=== PATIENT | female | born 1960 | race Caucasian/White ===

== ENCOUNTER 2017-05-22 07:58 | Emergency (ER) | payer BC ==
[2017-05-22 08:04] VITALS: BP 126/79
--- NOTE | 2017-05-22 09:25 | UC ---
Ear Complaint HPI - HPI Summary HPI Summary: 56 /o female presents to the urgent care c/o B/L ear pain and a feeling her tongue is burned since last Monday. She also states has has 3 episodes of diarrhea since Monday night 05/20/2017. Today she hasn't had any episodes of diarrhea, but she has a mild SEAMAN, pain 4/10. Pt denies fever, SOB, cough, chest pain, abdominal pain, N/V, or sick contacts. - History of Current Complaint Chief Complaint: UCEar Stated Complaint: EARACHE Time Seen by Provider: 05/22/17 08:53 Hx Obtained From: Patient Hx Last Menstrual Period: menopausal ?: No Onset/Duration: Gradual Onset Severity Initially: Mild Severity Currently: Mild Pain Intensity: 4 - headache Pain Scale Used: 0-10 Numeric Alleviating Factors: Nothing - Allergies/Home Medications Allergies/Adverse Reactions: Allergies Allergy/AdvReac Type Severity Reaction Status Date / Time Amoxicillin [From Augmentin] Allergy Unknown Rash Verified 05/22/17 08:04 Clavulanic Acid Allergy Unknown Rash Verified 05/22/17 08:04 [From Augmentin] Prednisone Allergy Unknown Rash Verified 05/22/17 08:04 Ciprofloxacin [From Cipro] Allergy RASH LOWER Verified 05/22/17 08:04 LEGS Nitrofurantoin Allergy Unknown Verified 05/22/17 08:04 [From Macrobid] Reaction Details Phenazopyridine Allergy Unknown Verified 05/22/17 08:04 Reaction Details Sulfamethoxazole Allergy RASH LOWER Verified 05/22/17 08:04 w/Trimethoprim LEGS [From Bactrim] ENVIRONMENTAL Allergy RUNNY Uncoded 05/22/17 08:04 NOSE, SNEEZING Home Medications: Home Medications Triamcinolone 0.1% CREAM (NF) [Kenalog 0.1% Cream (NF)] 1 applic .SEE ORDER 08/29 [History] PMH/Surg Hx/FS Hx/Imm Hx Previously Healthy: Yes GI/ History: Gastroesophageal Reflux - Surgical History Surgical History: Yes Surgery Procedure, Year, and Place: 1998 RIGHT UPPER ARM EXCISION AND BIOPSY OF MASS, [place] - Family History Known Family History: Positive: Diabetes - Social History Occupation: Unemployed Lives: With Family Alcohol Use: None Substance Use Type: None Smoking Status (MU): Former Smoker Review of Systems Constitutional: Negative Skin: Negative Eyes: Other - watery eyes ENT: Ear Ache, Other - tongue feels like is burned Respiratory: Negative Cardiovascular: Negative Gastrointestinal: Diarrhea - 3 episodes which resolved today Genitourinary: Negative Motor: Negative Neurovascular: Negative Musculoskeletal: Negative Neurological: Negative Psychological: Negative All Other Systems Reviewed And Are Negative: Yes Physical Exam Triage Information Reviewed: Yes Appearance: Well-Appearing, No Pain Distress, Well-Nourished, Thin Vital Signs: Initial Vital Signs Temp 97.4 F 05/22/17 08:00 Pulse 111 05/22/17 08:00 Resp 18 05/22/17 08:00 BP 126/79 05/22/17 08:00 Pulse Ox 98 05/22/17 08:00 Vital Signs Reviewed: Yes Eye Exam: Normal Eyes: Positive: Conjunctiva Clear - PERRLA, EOMI, fundi grossly normal ENT: Positive: Normal ENT inspection, Pharynx normal, TMs normal - RT ear canal WNL, Left ear canal with mild erythema, no ear discharge., Other: - tongue non tender on palpation and no lesions obeserved. Mild dryness. Negative: Nasal congestion, Nasal drainage Neck exam: Normal Neck: Positive: Supple, Nontender, No Lymphadenopathy Respiratory Exam: Normal Respiratory: Positive: Chest non-tender, Lungs clear, Normal breath sounds Cardiovascular Exam: Normal Cardiovascular: Positive: RRR, No Murmur, Pulses Normal Abdominal Exam: Normal Abdomen Description: Positive: Nontender, No Organomegaly, Soft. Negative: CVA Tenderness (R), CVA Tenderness (L) Bowel Sounds: Positive: Present Musculoskeletal Exam: Normal Musculoskeletal: Positive: Strength Intact, ROM Intact, No Edema Neurological Exam: Normal Neurological: Positive: Alert, Muscle Tone Normal Psychological Exam: Normal Skin Exam: Normal Ear Complaint Course/Dx - Course Course Of Treatment: 56 /o female presents to the urgent care c/o B/L ear pain and a feeling her tongue is burned since last Monday. She also states has has 3 episodes of diarrhea since Monday night 05/20/2017. Today she hasn't had any episodes of diarrhea, but she has a mild SEAMAN, pain 4/10. Pt denies fever, SOB, cough, chest pain, abdominal pain, N/V, or sick contacts. Hx obtained. PE abnormal finding:ENT: Positive: Normal ENT inspection, Pharynx normal, TMs normal - RT ear canal WNL, Left ear canal with mild erythema, no ear discharge. , Other: - tongue non tender on palpation and no lesions obeserved. Mild dryness. Negative: Nasal congestion, Nasal drainage. Pt Rx acetic acid otic drops for Left otitis externa., and. Acetaminiphen to alleviate symptoms. Advised to increase hydration with Pedialyte OTC or gatorade, eat soft meals, rests. F/u with her PCP DR Kadeem Galindo on her schedule appt on 05/25/2017. Pt understood and agreed and left the clinic ambulating. - Differential Dx/Diagnosis Differential Diagnosis/HQI/PQRI: Cerumen Impaction, Otitis Externa, Otitis Media , Pharyngitis Provider Diagnoses: Left acute otitis externa, diarrhea Discharge - Discharge Plan Condition: Stable Disposition: HOME Prescriptions: Acetaminophen TAB* [Tylenol TAB*] 650 mg PO Q4H PRN #20 tab PRN Reason: Headache Acetic Acid (Otic) [Acetic Acid] 2 % OT TID #1 pamela Patient Education Materials: Otitis Externa (ED), Acute Diarrhea (ED) Forms: *Work Release Referrals: Kadeem Galindo MD [Primary Care Provider] - 05/25/17 Additional Instructions: Please take medications as instructed. Please hydrate yourself well with either Pedialyte OTC or gatorade, eat soft meals and rest rest. If you do not improve or if symptoms worsen please follow up with your PCP or return to the urgent care for further evaluation and treatment.
== END 2017-05-22 09:44 | disposition home or self-care (01) ==
LOC: UCEAST 07:58
DX: H60.502 Unspecified acute noninfective otitis externa, left ear (principal); R19.7 Diarrhea, unspecified; K21.9 Gastro-esophageal reflux disease without esophagitis; Z88.1 Allergy status to other antibiotic agents; Z88.2 Allergy status to sulfonamides; Z87.891 Personal history of nicotine dependence
CPT/HCPCS: 99212; G0463

== ENCOUNTER 2018-10-24 15:16 | Emergency (ER) | payer BC ==
[2018-10-24 15:57] VITALS: BP 147/83
--- NOTE | 2018-10-24 17:01 | UC ---
Abdominal Pain Female HPI - HPI Summary HPI Summary: 58 y/o female presents to the urgent care c/o 2 episodes of diarrhea this morning at 0300am. Then she noticed a stream of rectal bleeding w/ every bowel movement about 7-8 episodes. Pt states bleeding is bright red. Pt states b/l lower abdominal cramping pain and then it is resolved w/ the bowel movement. Pain is 4/10. Pt reports Hx of hemorrhoids about 20 years ago. But denies an episode of rectal bleeding like today in the past. Pt states Hx of GERD. She has endoscopy done on 06/2018 which was negative for ulcer. Last colonoscopy done 5 years ago and was negative. Pt also states clear nasal congestion and left ear pain for the past 2 days. Pt denies fever, SOB,dizziness, SOB, chest pain, N/V, SEAMAN. She has not taking anything to alleviate symptoms. 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 Negative: Fever, Cough, Chest Pain, Dizzy, Urinary Symptoms, Decreased Appetite, Vaginal Bleeding, Vaginal Discharge, Vomiting - Risk Factors Ectopic Risk Factor: Negative Ovarian Torsion Risk Factor: Negative Allergies/Adverse Reactions: Allergies Allergy/AdvReac Type Severity Reaction Status Date / Time ciprofloxacin [From Cipro] Allergy Rash Verified 10/24/18 16:01 clavulanic acid Allergy Rash Verified 10/24/18 16:01 [From Augmentin] nitrofurantoin Allergy Unknown Verified 10/24/18 16:01 [From Macrobid] Reaction Details phenazopyridine Allergy Unknown Verified 10/24/18 16:01 Reaction Details sulfamethoxazole Allergy Breathing Verified 10/24/18 16:01 [From Bactrim] issues trazodone Allergy Unknown Verified 12/12/18 16:01 Reaction Details trimethoprim [From Bactrim] Allergy Rash Verified 10/24/18 16:01 ENVIRONMENTAL Allergy RUNNY Uncoded 10/24/18 16:01 NOSE, SNEEZING PMH/Surg Hx/FS Hx/Imm Hx Previously Healthy: Yes GI/ History: Gastroesophageal Reflux - Surgical History Surgical History: Yes Surgery Procedure, Year, and Place: 1998 RIGHT UPPER ARM EXCISION AND BIOPSY OF MASS, [place] - Family History Known Family History: Positive: Diabetes - Social History Occupation: Employed Full-time Lives: With Family Alcohol Use: None Substance Use Type: None Smoking Status (MU): Former Smoker Review of Systems All Other Systems Reviewed And Are Negative: Yes Constitutional: Positive: Chills Skin: Positive: Negative Eyes: Positive: Negative ENT: Positive: Ear Ache - left ear pain, Nasal Discharge - clear Respiratory: Positive: Negative Cardiovascular: Positive: Negative Gastrointestinal: Positive: Abdominal Pain - b/L intermittent lower abdominal pain, Diarrhea - 2 episodes today, Nausea, Other - stream of rectal bleeding Genitourinary: Positive: Negative Motor: Positive: Negative Neurovascular: Positive: Negative Musculoskeletal: Positive: Negative Neurological: Positive: Negative Psychological: Positive: Negative Is Patient Immunocompromised?: No Physical Exam - Summary Physical Exam Summary: Vital Signs Reviewed: Yes General:Patient is a well developed and nourished female who is sitting comfortable in the examining table. Patient is not in any acute respiratory or pain distress. Eyes: Positive: Conjunctiva Clear - PERRLA, EOMI, fundi grossly normal ENT: Positive: Normal ENT inspection, Hearing grossly normal, Pharynx normal, TMs normal Neck: Positive: Supple, Nontender, No Lymphadenopathy Respiratory: Positive: Chest non-tender, Lungs clear, Normal breath sounds, No respiratory distress Cardiovascular: Positive: RRR,S1 and S2 present, No Murmur, Pulses Normal, Brisk Capillary Refill Abdomen Description: Positive: Abd: Flat with no distention. No surface trauma , scars, incisions. hyperactive bowel sounds present in all four quadrants. No tenderness, guarding, rigidity to palpation. No masses palpated, no pulsation in epigastric area. No organomegaly. Negative [place] signs. No periumbilical tenderness. No rebound in the lower quadrants. NT over McBurney s point. Good femoral pulses bilaterally. No hernia noted. No CVAT bilaterally. Rectal:Sphincter tone normal. No rectal wall tenderness. Stool is bloody brown and heme positive.Positive external hemorrhoid, but no swelling of thromboses or bleeding observed externally. Musculoskeletal: Positive: Strength Intact, ROM Intact, No Edema,FROM in all major joints, no edema, no cyanosis or clubbing. Neuro: Alert and oriented x 3. No acute neurological deficits. Speech is normal. Psychological: WNL Skin: Dry and warm Triage Information Reviewed: Yes Vital Signs: Initial Vital Signs Temp 99.2 F 10/24/18 15:52 Pulse 106 10/24/18 15:52 Resp 16 10/24/18 15:52 BP 147/83 10/24/18 15:52 Pulse Ox 98 10/24/18 15:52 Abd Pain Female Course/Dx - Course Course Of Treatment: 58 y/o female presents to the urgent care c/o 2 episodes of diarrhea this morning at 0300am. Then she noticed a stream of rectal bleeding w/ every bowel movement about 7-8 episodes. Pt states bleeding is bright red. Pt states b/l lower abdominal cramping pain and then it is resolved w/ the bowel movement. Pain is 4/10. Pt reports Hx of hemorrhoids about 20 years ago. But denies an episode of rectal bleeding like today in the past. Pt states Hx of GERD. She has endoscopy done on 06/2018 which was negative for ulcer. Last colonoscopy done 5 years ago and was negative. Pt also states clear nasal congestion and left ear pain for the past 2 days. Pt denies fever, SOB, dizziness, SOB, chest pain, N/V, SEAMAN. She has not taking anything to alleviate symptoms. Hx obtained. Pt is hemodynamically stable, Mildly Tachycardic 106HR. Abdomen is WNL.Rectal exam:sphincter tone normal. No rectal wall tenderness. Stool is bloody brown and heme positive.Positive external hemorrhoid, but no swelling, or thromboses or bleeding observed externally. rectal bleeding is deepeer. PT' symptoms discussed w/ Dr Ayon and she recommended Pt should go to the [facility] ER for further management to r/o any abdominal etiology for her rectal bleeding. Pt offered ambulance transfer and the risks of not taking the ambulance. Pt edcuated on the need for a higher level of care since her rectal bleeding was profuse earlier as she described it. Pt declined ambulance transfer and stated her daughter will take her to the ER in a private car. I discussed Pt's symptoms w/ Dr Malcolm at the [facility] for further management. Dr Malcolm accepted the patient. Pt left the clinic ambulating and hemodynamically stable, A&OX3 - Differential Dx/Diagnosis Differential Diagnosis: Urinary Tract Infection, Other - Internal or externa hemorrhoids, diverticulitis, gastroenteritis, chronhs, ulcerative colitis Provider Diagnosis: Rectal bleeding - Physician Notification/Consults Discussed Care of Patient With: Terese Ayon - Dr ayon agreed w/ Pt's plan of care Discharge - Sign-Out/Discharge Documenting (check all that apply): Patient Departure - I strongly recommended Pt to go to the [facility] ER for further evaluation and treatment on her rectal bleeding All imaging exams completed and their final reports reviewed: No Studies - Discharge Plan Condition: Stable Disposition: HOME-RECOMMEND TO ED Patient Education Materials: Rectal Bleeding (ED) Referrals: Kadeem Galindo MD [Primary Care Provider] - Additional Instructions: I think you need a higher level or care for your presenting symptoms. I highly recommend you to go to the ER for further evaluation and treatment on your rectal bleeding. The risks of not going can be , sepsis, peritonitis, Internal hemorrhoids etc. I spoke to the ER attending Dr.Jerry Malcolm. They are expecting you. - Billing Disposition and Condition Condition: STABLE Disposition: Home-Recommend to ED
== END 2018-10-24 17:43 | disposition home health service (06) ==
LOC: UCEAST 15:16
DX: K62.5 Hemorrhage of anus and rectum (principal); Z88.0 Allergy status to penicillin; Z88.8 Allergy status to other drugs, medicaments and biological substances; Z87.891 Personal history of nicotine dependence
CPT/HCPCS: 82270; 99212; G0463

== ENCOUNTER 2018-10-24 17:57 | Emergency (ER) | payer BC ==
[2018-10-24 18:45] LABS: ABS Basophils 0.1 10^3/ul (0-0.2); ABS Eosinophils 0.1 10^3/ul (0-0.6); ABS Lymphocytes 1.6 10^3/ul (1.0-4.8); ABS Monocytes 0.5 10^3/ul (0-0.8); ABS Neutrophils 5.2 10^3/ul (1.5-7.7); ABS Nucleated RBC 0 10^3/ul; Eosinophil % 0.8 %; Hematocrit 43 % (35-47); Hemoglobin 14.6 g/dl (12.0-16.0); Lymphocyte % 21.7 %; Mean Corpuscular HGB Conc 34 g/dl (31-36); Mean Corpuscular Hemoglobin 31 pg (27-31); Mean Corpuscular Volume 91 fL (80-97); Mean Platelet Volume 8.7 fL (7.4-10.4); Nucleated Red Blood Cells % 0.1; Platelet Count 345 10^3/ul (150-450); Red Blood Count 4.79 10^6/ul (4.00-5.40); Red Cell Distribution Width 14 % (10.5-15); White Blood Count 7.6 10^3/ul (3.5-10.8)
[2018-10-24 19:11] LABS: EGFR Non-African American 73.9 (>60)
--- NOTE | 2018-10-24 21:27 | ED ---
GI/ HPI - HPI Summary HPI Summary: This patient is a 58 year old F presenting to [facility] with a chief complaint of diarrhea since 03:30 this morning. The patient reports that the diarrhea became bloody today at 20:00. The patient rates the pain 3/10 in severity. Symptoms aggravated by nothing. Symptoms alleviated by nothing. Patient reports cramping lower abdominal pain. Patient denies vomiting. 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 Negative: Vomiting Aggravating Factor(s): Nothing Alleviating Factor(s): Nothing - Allergy/Home Medications Allergies/Adverse Reactions: Allergies Allergy/AdvReac Type Severity Reaction Status Date / Time ciprofloxacin [From Cipro] Allergy Rash Verified 10/24/18 16:01 clavulanic acid Allergy Rash Verified 10/24/18 16:01 [From Augmentin] nitrofurantoin Allergy Unknown Verified 10/24/18 16:01 [From Macrobid] Reaction Details phenazopyridine Allergy Unknown Verified 10/24/18 16:01 Reaction Details sulfamethoxazole Allergy Breathing Verified 10/24/18 16:01 [From Bactrim] issues trazodone Allergy Unknown Verified 10/24/18 16:01 Reaction Details trimethoprim [From Bactrim] Allergy Rash Verified 10/24/18 16:01 ENVIRONMENTAL Allergy RUNNY Uncoded 10/24/18 16:01 NOSE, SNEEZING PMH/Surg Hx/FS Hx/Imm Hx Endocrine/Hematology History: Denies: Hx Diabetes, Hx Thyroid Disease Cardiovascular History: Denies: Hx Hypertension Respiratory History: Denies: Hx Asthma, Hx Chronic Obstructive Pulmonary Disease (COPD) GI History: Reports: Hx Gastroesophageal Reflux Disease - ACID REFLUX Denies: Hx Ulcer Comment Only: Other GI Disorders - gerd Musculoskeletal History: Reports: Other Musculoskeletal History - BILATERAL CARPAL TUNNEL SYNDROME Sensory History: Reports: Hx Contacts or Glasses - GLASSES Denies: Hx Hearing Aid Opthamlomology History: Reports: Hx Contacts or Glasses - GLASSES - Cancer History Hx Chemotherapy: No Hx Radiation Therapy: No - Surgical History Surgery Procedure, Year, and Place: 1998 RIGHT UPPER ARM EXCISION AND BIOPSY OF MASS, [place] Hx Anesthesia Reactions: No Infectious Disease History: No Infectious Disease History: Denies: Hx Hepatitis, Hx Human Immunodeficiency Virus (HIV), Traveled Outside the [place] in Last 30 Days - Family History Known Family History: Positive: Diabetes - Social History Alcohol Use: None Substance Use Type: Reports: None Smoking Status (MU): Former Smoker Review of Systems Negative: Fever Negative: Epistaxis Negative: Chest Pain Negative: Cough Positive: Abdominal Pain - lower abdominal pain, Diarrhea. Negative: Vomiting All Other Systems Reviewed And Are Negative: Yes Physical Exam - Summary Physical Exam Summary: VITAL SIGNS: Reviewed. GENERAL: Patient is a well-developed and nourished FEMALE who is lying comfortable in the stretcher. Patient is not in any acute respiratory distress. HEAD AND FACE: No signs of trauma. No ecchymosis, hematomas or skull depressions. No sinus tenderness. EYES: PERRLA, EOMI x 2, No injected conjunctiva, no nystagmus. EARS: Hearing grossly intact. Ear canals and tympanic membranes are within normal limits. MOUTH: Oropharynx within normal limits. NECK: Supple, trachea is midline, no adenopathy, no JVD, no carotid bruit, no c- spine tenderness, neck with full ROM. CHEST: Symmetric, no tenderness at palpation LUNGS: Clear to auscultation bilaterally. No wheezing or crackles. CVS: Regular rate and rhythm, S1 and S2 present, no murmurs or gallops appreciated. ABDOMEN: Soft. Lower abdominal pain No signs of distention. No rebound no guarding, and no masses palpated. Bowel sounds are normal. EXTREMITIES: FROM in all major joints, no edema, no cyanosis or clubbing. NEURO: Alert and oriented x 3. No acute neurological deficits. Speech is normal and follows commands. SKIN: Dry and warm RECTAL; no masses, no hemorrhoids, empty rectum. Tinge of blood in examining field Triage Information Reviewed: Yes Vital Signs On Initial Exam: Initial Vitals Temp Pulse Resp BP Pulse Ox 98.3 F 103 18 136/81 99 10/24/18 17:59 10/24/18 17:59 10/24/18 17:59 10/24/18 17:59 10/24/18 17:59 Vital Signs Reviewed: Yes Diagnostics - Vital Signs Vital Signs Temp Pulse Resp BP Pulse Ox 10/24/18 20:03 99.0 F 94 16 137/87 3 10/24/18 17:59 98.3 F 103 18 136/81 99 - Laboratory Lab Results: Lab Results 10/24/18 10/24/18 10/24/18 Range/Units 18:36 18:36 18:36 WBC 7.6 (3.5-10.8) 10^3/ul RBC 4.79 (4.00-5.40) 10^6/ul Hgb 14.6 (12.0-16.0) g/dl Hct 43 (35-47) % MCV 91 (80-97) fL MCH 31 (27-31) pg MCHC 34 (31-36) g/dl RDW 14 (10.5-15) % Plt Count 345 (150-450) 10^3/ul MPV 8.7 (7.4-10.4) fL Neut % (Auto) 68.9 % Lymph % (Auto) 21.7 % [place] % (Auto) 7.2 % Eos % (Auto) 0.8 % Baso % (Auto) 1.4 % Absolute Neuts (auto) 5.2 (1.5-7.7) 10^3/ul Absolute Lymphs (auto) 1.6 (1.0-4.8) 10^3/ul Absolute Monos (auto) 0.5 (0-0.8) 10^3/ul Absolute Eos (auto) 0.1 (0-0.6) 10^3/ul Absolute Basos (auto) 0.1 (0-0.2) 10^3/ul Absolute Nucleated RBC 0 10^3/ul Nucleated RBC % 0.1 Sodium 141 (135-145) mmol/L Potassium 4.4 (3.5-5.0) mmol/L Chloride 105 (101-111) mmol/L Carbon Dioxide 28 (22-32) mmol/L Anion Gap 8 (2-11) mmol/L BUN 12 (6-24) mg/dL Creatinine 0.80 (0.51-0.95) mg/dL Est GFR ( Amer) 89.5 (>60) Est GFR (Non-Af Amer) 73.9 (>60) BUN/Creatinine Ratio 15.0 (8-20) Glucose 112 H (70-100) mg/dL Lactic Acid 0.9 (0.5-2.0) mmol/L Calcium 9.9 (8.6-10.3) mg/dL Total Bilirubin 0.90 (0.2-1.0) mg/dL AST 17 (13-39) U/L ALT 19 (7-52) U/L Alkaline Phosphatase 72 (34-104) U/L C-Reactive Protein 7.36 (<8.01) mg/L Total Protein 7.9 (6.4-8.9) g/dL Albumin 4.7 (3.2-5.2) g/dL Globulin 3.2 (2-4) g/dL Albumin/Globulin Ratio 1.5 (1-3) Lipase 18 (11.0-82.0) U/L Result Diagrams: 10/24/18 18:36 10/24/18 18:36 Lab Statement: Any lab studies that have been ordered have been reviewed, and results considered in the medical decision making process. - CT CT Abd/Pelvis CT Interpretation Completed By: Radiologist Summary of CT Findings: infectious colitis distal transverse through proximal sigmoid colon. Dr. Randolph has reviewed this report GIGU Course/Dx - Course Course Of Treatment: This patient is a 58 year old F presenting to [facility] with a chief complaint of cramping lower abd pain and diarrhea since 03:30 this morning. The patient reports that the diarrhea became bloody today at 20:00. CT Abd/Pelvis reveals, per radiologist, infectious colitis distal transverse through proximal sigmoid colon. ED physician has reviewed this radiology report. Test results with no significant abnormalities. In the ED course the patient was given Bentyl, Flagyl, Levaquin, Contrast, and IV fluids. Patient will be discharged home with prescription for Levaquin and Flagyl and follow up from PCP. The patient is agreeable with this plan. - Diagnoses Provider Diagnoses: Colitis Discharge - Sign-Out/Discharge Documenting (check all that apply): Patient Departure - Discharge Plan Condition: Stable Disposition: HOME Prescriptions: Levofloxacin TAB* [Levaquin TAB*] 500 mg PO DAILY #7 tab metroNIDAZOLE [Flagyl 500 MG TAB] 500 mg PO TID #20 tab Patient Education Materials: Colitis (ED) Referrals: Kadeem Galindo MD [Primary Care Provider] - 2 Days Additional Instructions: Follow up with primary care physician in 1-2 days. Return to the emergency department with any new or worsening symptoms. - Attestation Statements Document Initiated by Scribe: Yes Documenting Scribe: Gayathri French Provider For Whom Torrieibjusto is Documenting (Include Credential): Imelda Randolph MD Scribe Attestation: Gayathri Gutierrez, scribed for Imelda Randolph MD on 10/25/18 at 0108. Status of Scribe Document: Ready
[2018-10-24] MEDS ORDERED: NS 0.9% 1000 ML* 1,000 ML IV ONE (21:28)
[2018-10-24] MEDS ORDERED: DICYCLOMINE HCL* 20 MG/2 ML VIAL IM ONE (21:28)
[2018-10-25] MEDS ORDERED: Iohexol 300* (CONTRAST) 10 ML SDV IV ONE (00:18)
[2018-10-25] MEDS ORDERED: metroNIDAZOLE TAB* 250 MG PO ONE (01:04)
[2018-10-25] MEDS ORDERED: Levofloxacin TAB* 500 MG PO ONE (01:05)
[2018-10-25 01:59] VITALS: BP 126/80
== END 2018-10-25 01:59 | disposition home or self-care (01) ==
LOC: ED 17:57
DX: A09 Infectious gastroenteritis and colitis, unspecified (principal); Z88.6 Allergy status to analgesic agent; Z88.1 Allergy status to other antibiotic agents; Z88.2 Allergy status to sulfonamides; Z87.891 Personal history of nicotine dependence
CPT/HCPCS: 36415; 74177; 80053; 83605; 83690; 85025; 86140; 96360; 96361; 96372; 99283; A9270-GY; J0500; Q9967

== ENCOUNTER 2019-04-05 12:59 | Emergency (ER) | payer BC ==
--- NOTE | 2019-04-05 14:48 | ED ---
Complex/Multi-Sys Presentation - HPI Summary HPI Summary: 58-year-old female presents with burning to tongue a couple days ago. States he drinks some water that tasted funny and developed the tongue burning. She states that since then she has had occasional burning on her skin and itchiness. She denies any rash. Denies any shortness breath. Denies any abdominal pain. No nausea and no vomiting. This never happened before. She hasn't tried anything for her symptoms. She is anxious. - History Of Current Complaint Chief Complaint: EDGeneral Time Seen by Provider: 04/05/19 13:36 - Allergies/Home Medications Allergies/Adverse Reactions: Allergies Allergy/AdvReac Type Severity Reaction Status Date / Time ciprofloxacin [From Cipro] Allergy Rash Verified 04/05/19 13:09 clavulanic acid Allergy Rash Verified 04/05/19 13:09 [From Augmentin] nitrofurantoin Allergy Unknown Verified 04/05/19 13:09 [From Macrobid] Reaction Details phenazopyridine Allergy Unknown Verified 04/05/19 13:09 Reaction Details sulfamethoxazole Allergy Breathing Verified 04/05/19 13:09 [From Bactrim] issues trazodone Allergy Unknown Verified 04/05/19 13:09 Reaction Details trimethoprim [From Bactrim] Allergy Rash Verified 04/05/19 13:09 ENVIRONMENTAL Allergy RUNNY Uncoded 02/08/19 11:21 NOSE, SNEEZING PMH/Surg Hx/FS Hx/Imm Hx Endocrine/Hematology History: Denies: Hx Diabetes, Hx Thyroid Disease Cardiovascular History: Denies: Hx Hypertension Respiratory History: Denies: Hx Asthma, Hx Chronic Obstructive Pulmonary Disease (COPD) GI History: Reports: Hx Gastroesophageal Reflux Disease - ACID REFLUX Denies: Hx Ulcer Comment Only: Other GI Disorders - gerd History: Denies: Hx Renal Disease Musculoskeletal History: Reports: Other Musculoskeletal History - BILATERAL CARPAL TUNNEL SYNDROME Sensory History: Reports: Hx Contacts or Glasses - GLASSES Denies: Hx Hearing Aid Opthamlomology History: Reports: Hx Contacts or Glasses - GLASSES - Cancer History Hx Chemotherapy: No Hx Radiation Therapy: No - Surgical History Surgery Procedure, Year, and Place: 1998 RIGHT UPPER ARM EXCISION AND BIOPSY OF MASS, [place] Hx Anesthesia Reactions: No Infectious Disease History: No Infectious Disease History: Denies: Hx Hepatitis, Hx Human Immunodeficiency Virus (HIV), Traveled Outside the [place] in Last 30 Days - Family History Known Family History: Positive: Diabetes - Social History Alcohol Use: None Substance Use Type: Reports: None Smoking Status (MU): Former Smoker Review of Systems Negative: Fever Negative: Chest Pain Negative: Shortness Of Breath Positive: Other - burning tongue and skin All Other Systems Reviewed And Are Negative: Yes Physical Exam Triage Information Reviewed: Yes Vital Signs On Initial Exam: Initial Vitals Temp Pulse Resp BP Pulse Ox 97.9 F 84 18 134/76 100 04/05/19 13:02 04/05/19 13:02 04/05/19 13:02 04/05/19 13:02 04/05/19 13:02 Vital Signs Reviewed: Yes Appearance: Positive: Well-Appearing Skin: Positive: Warm, Dry Head/Face: Positive: Normal Head/Face Inspection Eyes: Positive: Normal, EOMI, CUATE, Conjunctiva Clear ENT: Positive: Normal ENT inspection, Pharynx normal, TMs normal Respiratory/Lung Sounds: Positive: Clear to Auscultation, Breath Sounds Present Cardiovascular: Positive: Normal, RRR Abdomen Description: Positive: Nontender, Soft Bowel Sounds: Positive: Present Musculoskeletal: Positive: Normal Neurological: Positive: Normal Psychiatric: Positive: Normal Diagnostics - Vital Signs Vital Signs Temp Pulse Resp BP Pulse Ox 04/05/19 13:02 97.9 F 84 18 134/76 100 - Laboratory Lab Statement: Any lab studies that have been ordered have been reviewed, and results considered in the medical decision making process. Complex Multi-Symp Course/Dx Course Of Treatment: 58-year-old female presents with burning to tongue a couple days ago. States he drinks some water that tasted funny and developed the tongue burning. She states that since then she has had occasional burning on her skin and itchiness. She denies any rash. Denies any shortness breath. Denies any abdominal pain. No nausea and no vomiting. This never happened before. She hasn't tried anything for her symptoms. She is anxious. On exam patient has no signs of reaction or burn noted. Told to follow with primary. She'll take Benadryl as needed for symptoms. Patient understands and agrees with plan. - Diagnoses Differential Diagnoses/HQI/PQRI: Metabolic Abnormality Provider Diagnoses: Burning tongue Discharge - Sign-Out/Discharge Documenting (check all that apply): Patient Departure Patient Received Moderate/Deep Sedation with Procedure: No - Discharge Plan Condition: Good Disposition: HOME Referrals: Kadeem Galindo MD [Primary Care Provider] - Additional Instructions: take benadryl every 6 hours for itching Follow up with primary Return to ED if develop any new or worsening symptoms - Billing Disposition and Condition Condition: GOOD Disposition: Home
[2019-04-05] MEDS ORDERED: diPHENhydraMINE PO* 25 MG PO ONE (14:50)
[2019-04-05 15:03] VITALS: BP 123/79
== END 2019-04-05 15:02 | disposition home or self-care (01) ==
LOC: ED 12:59
DX: K14.6 Glossodynia (principal); Z88.1 Allergy status to other antibiotic agents; Z88.2 Allergy status to sulfonamides; Z88.8 Allergy status to other drugs, medicaments and biological substances; Z87.891 Personal history of nicotine dependence
CPT/HCPCS: 99281

== ENCOUNTER 2020-01-07 08:41 | Emergency (ER) | payer BC ==
[2020-01-07 08:56] VITALS: BP 136/72
--- NOTE | 2020-01-07 10:07 | UC ---
Ear Complaint HPI - HPI Summary HPI Summary: 59-year-old female presents complaining of waking during the night feeling a fly buzzing in her left ear. States she attempted to flush the fly out with water unsuccessfully. Denies fever, chills, ear pain, or drainage. - History of Current Complaint Chief Complaint: UCEar Stated Complaint: SOMETHING IN EAR Time Seen by Provider: 01/07/20 10:03 Hx Obtained From: Patient Hx Last Menstrual Period: elevator tender Pain Intensity: 0 - Allergies/Home Medications Allergies/Adverse Reactions: Allergies Allergy/AdvReac Type Severity Reaction Status Date / Time ciprofloxacin [From Cipro] Allergy Rash Verified 01/07/20 08:56 clavulanic acid Allergy Rash Verified 01/07/20 08:56 [From Augmentin] nitrofurantoin Allergy Unknown Verified 01/07/20 08:56 [From Macrobid] Reaction Details phenazopyridine Allergy Unknown Verified 01/07/20 08:56 Reaction Details sulfamethoxazole Allergy Breathing Verified 01/07/20 08:56 [From Bactrim] issues trazodone Allergy Unknown Verified 01/07/20 08:56 Reaction Details trimethoprim [From Bactrim] Allergy Rash Verified 01/07/20 08:56 ENVIRONMENTAL Allergy RUNNY Uncoded 01/07/20 08:56 NOSE, SNEEZING Home Medications: Home Medications Vitamin D 50,000 units PO DAILY 05/22/13 [History Confirmed 01/07/20] Cetirizine* [ZyrTEC 10 MG TAB*] 10 mg PO DAILY PRN 08/03/18 [History Confirmed 01/07/20] Hydrocortisone [Proctozone-Hc] 1 applic NE DAILY PRN 08/03/18 [History Confirmed 01/07/20] Omeprazole 29 mg PO DAILY 01/07/20 [History Confirmed 01/07/20] PMH/Surg Hx/FS Hx/Imm Hx GI/ History: Gastroesophageal Reflux - Surgical History Surgical History: Yes Surgery Procedure, Year, and Place: 1998 RIGHT UPPER ARM EXCISION AND BIOPSY OF MASS, [place] - Family History Known Family History: Positive: Diabetes - Social History Occupation: Employed Full-time Lives: With Family Alcohol Use: None Substance Use Type: None Smoking Status (MU): Former Smoker Review of Systems All Other Systems Reviewed And Are Negative: Yes Constitutional: Positive: Negative Skin: Positive: Negative ENT: Positive: Other - See HPI Respiratory: Positive: Negative Cardiovascular: Positive: Negative Gastrointestinal: Positive: Negative Genitourinary: Positive: Negative Musculoskeletal: Positive: Negative Neurological/Mental Status: Positive: Negative Is Patient Immunocompromised?: No Physical Exam - Summary Physical Exam Summary: GENERAL APPEARANCE: Well developed, well nourished, alert and cooperative, and appears to be in no acute distress. EYES: Conjunctiva clear. No drainage. EARS: Housefly visualized within the left external auditory canal. Right external auditory canal clear, opaque TM with good cone of light. NOSE: No nasal discharge. THROAT: Pharynx normal No tonsilar inflammation, swelling, exudate, or lesions. Uvula midline. Oral cavity normal. Teeth and gingiva in good general condition. NECK: Neck supple, non-tender without lymphadenopathy. CARDIAC: Normal S1 and S2. No S3, S4 or murmurs. Rhythm is regular. There is no peripheral edema, cyanosis or pallor. Extremities are warm and well perfused. Capillary refill is less than 2 seconds. Peripheral pulses intact. LUNGS: Clear to auscultation without rales, rhonchi, wheezing or diminished breath sounds. ABDOMEN: Positive bowel sounds. Soft, nondistended, nontender. No guarding or rebound. No masses or hepatosplenomegally. MUSKULOSKELETAL: ROM intact to all extremities. No joint erythema or tenderness. Normal muscular development. Normal gait. SKIN: Skin normal color, texture and turgor with no lesions or eruptions. Triage Information Reviewed: Yes Vital Signs: Initial Vital Signs Temp 97.1 F 01/07/20 08:51 Pulse 85 01/07/20 08:51 Resp 18 01/07/20 08:51 BP 136/72 01/07/20 08:51 Pulse Ox 98 01/07/20 08:51 Vital Signs Reviewed: Yes Ear Complaint Course/Dx - Course Course Of Treatment: 59-year-old female presents complaining of waking during the night feeling a fly buzzing in her left ear. States she attempted to flush the fly out with water unsuccessfully. Denies fever, chills, ear pain, or drainage. Afebrile. Vital signs stable. On exam I was able to visualize a housefly within the left external auditory canal. I removed the fly in its entirety using alligator forceps. After removal the left external auditory canal has clear and the TM was intact, opaque with a good cone of light. She is to follow-up with her primary care provider as needed. Anticipatory guidance and warning symptoms reviewed with the patient. Verbalized understanding and agrees with plan of care. - Differential Dx/Diagnosis Differential Diagnosis/HQI/PQRI: Foreign Body, Otitis Externa Provider Diagnosis: Foreign body in left ear Discharge ED - Sign-Out/Discharge Documenting (check all that apply): Patient Departure All imaging exams completed and their final reports reviewed: No Studies - Discharge Plan Condition: Stable Disposition: HOME Patient Education Materials: Ear Foreign Body (ED) Referrals: Kadeem Galindo MD [Primary Care Provider] - If Needed Additional Instructions: The fly in your ear was successfully removed. Follow up with your primary care provider as needed. Seek immediate medical attention if you develop fever greater than 100.5 F, you have severe ear pain, drainage from the ear, or any worsening of symptoms. - Billing Disposition and Condition Condition: STABLE Disposition: Home
== END 2020-01-07 10:22 | disposition home or self-care (01) ==
LOC: UCEAST 08:41
DX: S00.452A Superficial foreign body of left ear, initial encounter (principal); K21.9 Gastro-esophageal reflux disease without esophagitis; Z88.1 Allergy status to other antibiotic agents; Z88.0 Allergy status to penicillin; Z88.2 Allergy status to sulfonamides; Z88.8 Allergy status to other drugs, medicaments and biological substances; Z91.09 Other allergy status, other than to drugs and biological substances; Z79.899 Other long term (current) drug therapy; Z87.891 Personal history of nicotine dependence; X58.XXXA Exposure to other specified factors, initial encounter; Y92.9 Unspecified place or not applicable
CPT/HCPCS: 69200; 99211; G0463